=== PATIENT | male | born 2000 | race Caucasian/White ===

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

== ENCOUNTER 2022-11-17 19:27 | Emergency (ER) | payer OTHER ==
[2022-11-17 19:38] VITALS: BP 122/59; PULSE 87; RESP 18; TEMP 98.8; BMI 28.2
[2022-11-17] MEDS ORDERED: IBUPROFEN 600 MG TABLET (FP) PO ONE ×2 (20:04)
[2022-11-17] MEDS ORDERED: DIPHTH,PERTUSS(ACELL),TET 0.5 ML DISP.SYRIN IM ONE ×2 (20:04)
== END 2022-11-17 20:35 | disposition home or self-care (01) ==
LOC: JERFT 19:27
PROC: 3E0234Z Introduction of Serum, Toxoid and Vaccine into Muscle, Percutaneous Approach (ICD-10-PCS; principal; 2022-11-17)
DX: S93.491A Sprain of other ligament of right ankle, initial encounter (principal); S90.811A Abrasion, right foot, initial encounter; X50.1XXA Overexertion from prolonged static or awkward postures, initial encounter; W18.30XA Fall on same level, unspecified, initial encounter; Y93.67 Activity, basketball
CPT/HCPCS: 73610-TC-RT-FY; 73630-TC-RT-FY; 90715; 99283-25